=== PATIENT | male | born 1935 | race Caucasian/White ===

== ENCOUNTER 2020-02-12 16:56 | Emergency (ER) | payer OTHER, MEDICARE, BC ==
[~2020-02-12] VITALS: Ht 172.7 cm; Wt 72.5 kg
[2020-02-12] MEDS ORDERED: acetaminophen 325mg tablet PO ONE (17:15)
[2020-02-12] MEDS ORDERED: normal saline 1000ml 1,000 ML IV ONE (17:15)
[2020-02-12 17:19] VITALS: BP 117/51
[2020-02-12 18:02] LABS: BASOPHILS % (AUTO) 0.8 % (0-1); EOSINOPHILS # (AUTO) 0.4 X10'3 (0-0.9); EOSINOPHILS % (AUTO) 7.7 % (0-6); HEMATOCRIT 34.5 % (42.0-52.0); HEMOGLOBIN 11.6 g/dl (14.0-17.9); LYMPHOCYTES # (AUTO) 1.2 X10'3 (1.1-4.8); LYMPHOCYTES % (AUTO) 23.7 % (21-51); MEAN CORPUSCULAR HEMOGLOBIN 30.4 PG (27.0-31.0); MEAN CORPUSCULAR HGB CONC 33.5 g/dL (33.0-36.5); MEAN CORPUSCULAR VOLUME 90.6 FL (78-98); MEAN PLATELET VOLUME 8.1 FL (7.4-10.4); MONOCYTES # (AUTO) 0.6 X10'3 (0-0.9); MONOCYTES % (AUTO) 11.4 % (2-12); NEUTROPHILS # (AUTO) 2.9 X10'3 (1.8-7.7); NEUTROPHILS % (AUTO) 56.4 % (42-75); PLATELET COUNT 167 X10'3 (140-440); RED CELL DISTRIBUTION WIDTH 14.2 % (11.5-14.5); WHITE BLOOD COUNT 5.2 X10'3 (4.5-11.0)
[2020-02-12 18:12] LABS: ALANINE AMINOTRANSFERASE 20 U/L (12-78); ALBUMIN 3.1 G/DL (3.4-5.0); ALBUMIN/GLOBULIN RATIO 1.2 (1.1-1.5); ALKALINE PHOSPHATASE 54 IU/L (46-116); ANION GAP 4 (8-16); ASPARTATE AMINO TRANSFERASE 18 U/L (10-37); BILIRUBIN,TOTAL 0.4 MG/DL (0.1-1.0); BLOOD UREA NITROGEN 27 MG/DL (7-18); BUN/CREATININE RATIO 24.3 (5.4-32.0); CALCIUM 7.9 MG/DL (8.5-10.1); CHLORIDE 112 MMOL/L (99-107); CREATININE 1.11 MG/DL (0.60-1.10); GLUCOSE 81 MG/DL (70-104); POTASSIUM 3.7 MMOL/L (3.5-5.1); SODIUM 143 MMOL/L (135-145); TOTAL PROTEIN 5.6 G/DL (6.4-8.2); eGFR 63 ML/MIN
[2020-02-12 18:19] LABS: MAGNESIUM 1.9 MG/DL (1.5-2.4)
== END 2020-02-12 19:31 | disposition home or self-care (01) ==
LOC: ER 16:57
DX: E86.0 Dehydration (principal); R42 Dizziness and giddiness; R55 Syncope and collapse
CPT/HCPCS: 36415; 71045; 80053; 83605; 83735; 84145; 84484; 85025; 93005; 99285; J7030